=== PATIENT | male | born 1995 | race Caucasian/White ===

== ENCOUNTER 2017-06-06 03:49 | Emergency (ER) | payer SELFPAY ==
[~2017-06-06] VITALS: Ht 175.3 cm; Wt 54.0 kg
[2017-06-06 04:05] VITALS: O2SAT 98
[2017-06-06 04:12] LABS: AUTOMATED NEUTROPHIL # 4.2 TH/MM3 (1.8-7.7); BASOPHIL # 0.1 TH/MM3 (0-0.2); BASOPHIL % 1.1 % (0.0-2.0); EOSINOPHIL # 0.3 TH/MM3 (0-0.4); EOSINOPHIL % 4.1 % (0.0-4.0); HEMATOCRIT 51.2 % (39.0-51.0); HEMOGLOBIN 18.2 GM/DL (13.0-17.0); LYMPH % 36.4 % (9.0-44.0); LYMPHOCYTE # 3.1 TH/MM3 (1.0-4.8); MEAN CELL VOLUME 86.1 FL (80.0-100.0); MEAN CORPUSCULAR HEMOGLOBIN 30.6 PG (27.0-34.0); MEAN CORPUSCULAR HGB CONC 35.5 % (32.0-36.0); MEAN PLATELET VOLUME 9.8 FL (7.0-11.0); MONO % 7.9 % (0.0-8.0); MONOCYTE # 0.7 TH/MM3 (0-0.9); NEUT % 50.5 % (16.0-70.0); PLATELET COUNT 196 TH/MM3 (150-450); RED BLOOD COUNT 5.95 MIL/MM3 (4.50-5.90); RED CELL DISTRIBUTION WIDTH 12.9 % (11.6-17.2); WHITE BLOOD COUNT 8.4 TH/MM3 (4.0-11.0)
[2017-06-06 04:13] VITALS: TEMP 97.9; O2SAT 100
[2017-06-06 04:20] LABS: CALCIUM 9.5 MG/DL (8.5-10.1)
[2017-06-06 04:24] LABS: CREATININE 0.98 MG/DL (0.60-1.30)
[2017-06-06 04:27] VITALS: BP 110/70; PULSE 61; RESP 28; TEMP 97.9; O2SAT 100
--- NOTE | 2017-06-06 04:32 | RADRPT ---
EXAM DATE/TIME: 06/06/2017 04:08 [place] COMPARISON: No previous studies available for comparison. INDICATIONS : Shortness of breath, difficulty brething for 2 hours MEDICAL HISTORY : None. SURGICAL HISTORY : None. ENCOUNTER: Initial ACUITY: 1 day PAIN SCORE: 0/10 LOCATION: Bilateral chest FINDINGS: PA and lateral views of the chest demonstrate the lungs to be symmetrically aerated without evidence of mass, infiltrate or effusion. The cardiomediastinal contours are unremarkable. Osseous structure s are intact. CONCLUSION: 1. No active disease. Mild scoliosis. Bob Valle MD on June 06, 2017 at 4:30 Board Certified Radiologist. This report was verified electronically.
[2017-06-06 04:45] VITALS: BP 102/61; PULSE 52; RESP 22; O2SAT 97
[2017-06-06] MEDS ORDERED: methylPREDNISolone SOD SUCC 125 MG/2 ML VIAL IV PUSH ONE (05:15)
--- NOTE | 2017-06-06 05:20 | PD ---
HPI Chief Complaint: Respiratory Symptoms Time Seen by Provider: 05:08 Travel History International Travel<30 days: No Contact w/Intl Traveler<30days: No Traveled to known affect area: No History of Present Illness HPI The patient is a 21-year-old male with a history of childhood asthma who felt wheezing tonight and fell that difficulty breathing. He has not had a problem with his asthma was for many years. He denies any fever. [facility] Past Medical History Anxiety: Yes (Mild) Tetanus Vaccination: Unknown Influenza Vaccination: No Social History Alcohol Use: Yes (Socially) Tobacco Use: Yes (2 Cig/Day) Allergies-Medications (Allergen,Severity, Reaction): Coded Allergies: No Known Allergies (Unverified , 06/06/17) Review of Systems Except as stated in HPI: all other systems reviewed are Neg Physical Exam Narrative GENERAL: Well-nourished, anxious, well-developed patient in slight respiratory distress. His vital signs initially showed respiratory rate of 28 and oximetry on her percent but after he calmed down his respirations were 22 and oximetry 97 %. SKIN: Focused skin assessment warm/dry. HEAD: Normocephalic. EYES: No scleral icterus. No injection or drainage. NECK: Supple, trachea midline. No JVD or lymphadenopathy. CARDIOVASCULAR: Regular rate and rhythm without murmurs, gallops, or rubs. RESPIRATORY: Breath sounds equal bilaterally. No accessory muscle use. A few widely scattered wheezes are heard. GASTROINTESTINAL: Abdomen soft, non-tender, nondistended. MUSCULOSKELETAL: No cyanosis, or edema. BACK: Nontender without obvious deformity. No CVA tenderness. Data Data Last Documented VS Vital Signs Date Time Temp Pulse Resp B/P (MAP) Pulse Ox O2 Delivery O2 Flow Rate FiO2 06/06/17 04:45 52 22 102/61 (75) 97 Room Air 06/06/17 04:27 97.9 Orders Orders Complete Blood Count With Diff (06/06/17 03:56) Basic Metabolic Panel (Bmp) (06/06/17 03:56) Chest, Pa & Lat (06/06/17 03:56) Iv Access Insert/Monitor (06/06/17 03:56) Ecg Monitoring (06/06/17 03:56) Oxygen Administration (06/06/17 03:56) Oximetry (06/06/17 03:56) Electrocardiogram (06/06/17 03:56) Influenzae A/B Antigen (06/06/17 04:24) Group A Rapid Strep Screen (06/06/17 04:36) Strep Culture (Group A) (06/06/17 04:39) Methylprednisolone So Succ Inj (Solumedr (06/06/17 05:15) Albuterol-Ipratropium Neb (Duoneb Neb) (06/06/17 05:15) Labs Laboratory Tests Test 06/06/17 04:00 White Blood Count 8.4 TH/MM3 Red Blood Count 5.95 MIL/MM3 Hemoglobin 18.2 GM/DL Hematocrit 51.2 % Mean Corpuscular Volume 86.1 FL Mean Corpuscular Hemoglobin 30.6 PG Mean Corpuscular Hemoglobin Concent 35.5 % Red Cell Distribution Width 12.9 % Platelet Count 196 TH/MM3 Mean Platelet Volume 9.8 FL Neutrophils (%) (Auto) 50.5 % Lymphocytes (%) (Auto) 36.4 % Monocytes (%) (Auto) 7.9 % Eosinophils (%) (Auto) 4.1 % Basophils (%) (Auto) 1.1 % Neutrophils # (Auto) 4.2 TH/MM3 Lymphocytes # (Auto) 3.1 TH/MM3 Monocytes # (Auto) 0.7 TH/MM3 Eosinophils # (Auto) 0.3 TH/MM3 Basophils # (Auto) 0.1 TH/MM3 CBC Comment DIFF FINAL Differential Comment Blood Urea Nitrogen 19 MG/DL Creatinine 0.98 MG/DL Random Glucose 116 MG/DL Calcium Level 9.5 MG/DL Sodium Level 136 MEQ/L Potassium Level 3.4 MEQ/L Chloride Level 104 MEQ/L Carbon Dioxide Level 22.0 MEQ/L Anion Gap 10 MEQ/L Estimat Glomerular Filtration Rate 97 ML/MIN [facility] Medical Decision Making Medical Screen Exam Complete: Yes Emergency Medical Condition: Yes Medical Record Reviewed: Yes Interpretation(s) The group A streptococcal screen is negative for group A strep. The influenza A /B antigen is negative for flu a and flu B antigen. The CBC is normal except for hemoglobin of 18.2 and hematocrit of 51.2. The basic metabolic profile shows a potassium of 3.4 with BUN of 19 but is otherwise unremarkable. The chest x-ray shows no active disease and only shows mild scoliosis. Differential Diagnosis Asthma, pneumonia, bronchitis, pulmonary embolus-unlikely, anxiety hyperventilation Narrative Course It is now 0 519 and the patient does feel much better but he has not had any of her nebulizer treatments, he is simply calm down. He was anxious when he came in. At 0545 I listened to his lungs again and I could hear some rhonchi and wheezes characteristic of bronchitis. He states he got slight relief with the DuoNeb treatments. He does not have a nebulizer machine at home and will be given albuterol HFA as well as a tapered 8 day course of prednisone. Impression: Bronchitis with bronchospasm Plan: The patient will get an HFA albuterol and tapered course of prednisone. He needs to follow-up with his primary care physician next week. Diagnosis Primary Impression: Bronchitis with bronchospasm Additional Instructions: As we discussed, the prednisone is taken one tablet twice daily for 4 days followed by one tablet once daily for 4 days. Follow-up next week with your primary care physician. Scripts Prednisone (Prednisone) 50 Mg Tab 50 MG PO BID for X 4 days than daily X 4 days, #12 TAB 0 Refills Prov: Harvinder Bond MD 06/06/17 Albuterol 8.5 GM Inh (Proair Hfa 8.5 GM Inh) 90 Mcg/Act Aer 2 PUFF INH Q4-6H Y for SHORTNESS OF BREATH, #1 INHALER 0 Refills 108 mcg/actuation Prov: Harvinder Bond MD 06/06/17 Disposition: 01 DISCHARGE HOME Condition: Stable Harvinder Bond MD Jun 06, 2017 05:20
[2017-06-06] MEDS: RESP: ALBUTEROL 2.5 MG/IPRATROPIUM 0.5 MG NEB (SCH) INH (05:26)
[2017-06-06 05:57] VITALS: BP 127/57
[2017-06-06] MEDS ORDERED: PRED50 PO (05:57)
[2017-06-06] MEDS ORDERED: ALBUAER3 INH (05:57)
--- NOTE | 2017-06-06 14:32 | EKG ---
Date Performed: 06/06/2017 Time Performed: 03:57:51 PTAGE: 21 years EKG: Sinus rhythm WITH SINUS ARRHYTHMIA POSSIBLE RIGHT VENTRICULAR CONDUCTION DELAY BORDERLINE ECG NO PREVIOUS TRACING DOCTOR: Zahra Wasserman Interpretating Date/Time 06/06/2017 14:27:49
== END 2017-06-06 06:13 | disposition home or self-care (01) ==
LOC: PHED 03:49
DX: J20.9 Acute bronchitis, unspecified (principal); R94.31 Abnormal electrocardiogram [ECG] [EKG]; Z72.0 Tobacco use
CPT/HCPCS: 71046; 80048; 85025; 87081; 87804; 87880; 93005; 94640; 94664; 96374; 99285; J2930